=== PATIENT | male | born 1980 | race Caucasian/White ===

== ENCOUNTER 2021-07-09 10:01 | Emergency (ER) | payer OTHER ==
--- OUTSIDE RECORDS SUMMARY | 2021-07-09 10:16 | XMS REPORT | Continuity of Care Document ---
:1980 Author Organization [facility] [place] [facility] t Address [address] [place] [address] [address]. [address] [place] [address] Care Team Providers Name Role Phone Angely PORTER Attending Clinician Unavailable Silvia LALA Attending Clinician Unavailable Room, Therapy Tub Attending Clinician Unavailable Harjinder CODY, Jon Attending Clinician Silvia Lala MD Attending Clinician Angely Porter MD Attending Clinician Jon GRANDE Attending Clinician Unavailable Ministerio Ruiz MD Attending Clinician MINISTERIO RUIZ Attending Clinician Unavailable Doctor Unassigned, Name Attending Clinician Unavailable Problems Condition Condition Condition Status Onset Resolution Last Treating Co mments Source Name Details Category Date Date Treatment Clinician Date Burn Burn Disease Active Univers 11-05 ity of 00:00: [place] 00 [facility] Allergies, Adverse Reactions, Alerts Allergy Allergy Status Severity Reaction(s) Onset Inactive Treating Comm ents Source Name Type Date Date Clinician NO KNOWN Drug Active Univers ALLERGIE Class ity of S [facility] Social History Social Habit Start Date Stop Date Quantity Comments Source Exposure to Not sure [facility] SARS-CoV-2 (event) Medica l Branch Tobacco use and 2020-11-17 2020-11-17 Never used [facility] exposure 00:00:00 00:00:00 [facility] Sex Assigned At [birth year] [facility] 00:00:00 00:00:00 [facility] Smoking Status Start Date Stop Date Source Current every day smoker 2020-[facility]17 [facility] Ordered Filled Start Stop Current Ordering Indication Dosage Frequency Signature Comments Components Source Medication Medication Date Date Medication? Clinician (SIG) Name Name FENTanyl 2020- No [id number] 200ug 200 mcg, Univers (ACTIQ) 11-17 Buccal, ity of lollipop 19:00: 18:01 ONCE, 1 [place] 200 mcg 00 :00 dose, Fri Medical 11/17/20 at Branch 1400, Routine gabapentin 2020-2020- No [id number] 300mg Take 1 Univers 300 mg 11-17 05-08 capsule by ity of capsule 00:00: 04:59 mouth 3 [place] 00 :00 (three) Medical times Branch daily for 14 days. gabapentin 2020-0 2020- No [id number] 300mg Take 1 Univers 300 mg 11-17 05-08 capsule by ity of capsule 00:00: 04:59 mouth 3 [place] 00 :00 (three) Medical times Branch daily for 14 days. ibuprofen Yes [id number] 600mg Take 3 Univers 200 mg 4-11 tablets by ity of tablet 00:00: mouth [place] 00 every 6 Medical (six) Branch hours as needed for Pain (scale 1-3) or Pain (scale 4-6). ibuprofen Yes [id number] 600mg Take 3 Univers 200 mg 4-11 tablets by ity of tablet 00:00: mouth [place] 00 every 6 Medical (six) Branch hours as needed for Pain (scale 1-3) or Pain (scale 4-6). ibuprofen Yes [id number] 600mg Take 3 Univers 200 mg 4-11 tablets by ity of tablet 00:00: mouth [place] 00 every 6 Medical (six) Branch hours as needed for Pain (scale 1-3) or Pain (scale 4-6). ibuprofen Yes [id number] 600mg Take 3 Univers 200 mg 4-11 tablets by ity of tablet 00:00: mouth [place] 00 every 6 Medical (six) Branch hours as needed for Pain (scale 1-3) or Pain (scale 4-6). ibuprofen 0 Yes [id number] 600mg Take 3 Univers 200 mg 4-11 tablets by ity of tablet 00:00: mouth [place] 00 every 6 Medical (six) Branch hours as needed for Pain (scale 1-3) or Pain (scale 4-6). ibuprofen Yes [id number] 600mg Take 3 Univers 200 mg 4-11 tablets by ity of tablet 00:00: mouth [place] 00 every 6 Medical (six) Branch hours as needed for Pain (scale 1-3) or Pain (scale 4-6). ibuprofen Yes [id number] 600mg Take 3 Univers 200 mg 4-11 tablets by ity of tablet 00:00: mouth [place] 00 every 6 Medical (six) Branch hours as needed for Pain (scale 1-3) or Pain (scale 4-6). HYDROcodone 2020- No [id number] 1{tbl} Take 1 U nivers -acetaminop 11-05 tablet by it y of hen 5-325 00:00: 04:59 mouth [place] mg tablet 00 :00 every 6 Medical (six) Branch hours as needed for Pain (scale 7-10) for up to 7 days. Indication s: acute pain sulfamethox 2020- No [id number] 1{tbl} Take 1 Univers azole-trime 11-05 tablet by it y of thoprim 00:00: 04:59 mouth 2 [place] (BACTRIM 00 :00 (two) Medical DS) 800-160 times Branch mg per daily for tablet 7 days. rifAMPin 2020- No [id number] 300mg Take 1 Univers 300 mg 11-05 capsule by ity of capsule 00:00: 04:59 mouth [place] 00 :00 daily for Medical 7 days. Branch Vital Signs Vital Name Observation Time Observation Value Comments Source Systolic blood 2020-11-17 17:58:00 120 mm[Hg] Univer sity [facility] Diastolic blood 2020-11-17 17:58:00 72 mm[Hg] [facility] Heart rate 2020-11-17 17:58:00 87 /min [facility] Body temperature 2020-11-17 17:58:00 36.67 Sol [facility] Body weight 2020-11-17 17:58:00 83.915 kg [facility] BMI 2020-11-17 17:58:00 27.32 kg/m2 [facility] Oxygen saturation in 2020-11-17 17:58:00 98 /min [facility] Arterial blood by [facility] Pulse oximetry Branch Respiratory rate 2020-11-17 17:44:00 20 /min [facility] Systolic blood 2020-11-09 18:08:00 109 mm[Hg] Univer sity of pressure [facility] Diastolic blood 2020-11-09 18:08:00 67 mm[Hg] Unive rsity of pressure [facility] Heart rate 2020-11-09 18:08:00 74 /min [facility] Body temperature 2020-11-09 18:08:00 36.89 Sol [facility] Respiratory rate 2020-11-09 18:08:00 18 /min [facility] Body weight 2020-11-09 18:08:00 83.915 kg [facility] BMI 2020-11-09 18:08:00 27.32 kg/m2 [facility] Oxygen saturation in 2020-11-09 18:08:00 98 /min [facility] Arterial blood by [facility] Pulse oximetry Branch Procedures Procedure Date / Time Performed Performing Clinician Sour e HOSPITAL ADMISSION 2020-11-05 05:01:00 Doctor Unassigned, No Uni versity of [facility] Encounters Start End Encounter Admission Attending Care Care Encounter Source Date/Time Date/Time Type Type Clinicians Facility Department ID 2020-11-30 2020-11-30 Outpatient R [facility] [id number] Univers 12:30:00 12:30:00 [id number] [facility] 2020-11-30 2020-11-30 Outpatient O CHARLOTTE [facility] [id number] Univers 12:30:00 12:30:00 [facility] 2020-11-24 2020-11-24 Outpatient R [facility] [id number] Univers 12:30:00 12:30:00 [id number] [facility] 2020-11-24 2020-11-24 Outpatient O ABIODUN LALA [facility] [id number] Univers 12:30[facility]00 [facility] 2020-11-21 2020-11-21 Ancillary Room, Susi-Occup Therapy Tub [facility] [id number] Univers 09:55:46 10:55:46 Visit [place] [id number] ity of Hospital [id number] Siddhartha as [phone] [facility] 178 Branch 2020-11-17 2020-11-17 Hospital Abiodun Lala [id number] Univers 12:30:00 23:59:00 Encounter Kang Porter [place] [id number] 0 ity of Hospital [id number] Siddhartha as [phone] [facility] 184 Branch 2020-11-17 2020-11-17 Outpatient R HARJINDER [facility] [id number] Univers 15:00:00 15:00:00 NING ity [facility] 2020-11-17 2020-11-17 Outpatient O [facility] [id number] Univers 12:30:00 12:30:00 [id number] ity [facility] 2020-11-17 2020-11-17 Outpatient O ABIODUN LALA [facility] [id number] Univers 12:30:00 12:30:00 ity [facility] 2020-11-16 2020-11-16 Telephone Abiodun Lala [id number] Univers 00:00:00 00:00:00 [place] [id number] it y of Hospital [id number] Siddhartha as [phone] [facility] 184 Branch 2020-11-15 2020-11-15 Telephone Abiodun Lala [id number] Univers 00:00:00 00:00:00 [place] [id number] it y of Hospital [id number] Siddhartha as [phone] [facility] 184 Branch 2020-11-09 2020-11-09 Kristopher Rg 1. [id number] Univers 12:30:00 23:59:00 Encounter Abiodun Lala [id number] ity of [facility] [id number] Siddhartha as [phone] [facility] 184 Branch 2020-11-09 2020-11-09 Ancillary Room, Susi-Occup Therapy Tub [facility] [id number] Univers 14:21:33 15:21:33 Visit [place] [id number] ity of [facility] [id number] Siddhartha as [phone] [facility] 178 Branch 2020-11-09 2020-11-09 Outpatient O ANTONY, [facility] [id number] Univers 12:30:00 12:30:00 KRISTPOHER [facility] 2020-11-09 2020-11-09 Outpatient R [facility] [id number] Univers 11:00:00 11:00:00 [id number] [facility] 2020-11-09 2020-11-09 [facility] [id number] Univers 11:00:00 11:00:00 NING bryson [facility] 2020-11-05 2020-11-05 Orders Doctor JAYESH [id number] Univers 00:00:00 00:00:00 Only Unassigned, JUAN [id number] ity of [place] [facility] [id number] Siddhartha as [phone] [facility] 009 Branch Results This patient has no known results.
--- NOTE | 2021-07-09 12:21 | RAD REPORT ---
EXAM DESCRIPTION: RAD - Foot Right 3 View - 07/09/2021 11:11 am CLINICAL HISTORY: Right foot pain status post injury FINDINGS: Lucency proximal metaphysis fourth metatarsal probably subacute minimally displaced fractu re. Lucencies within the base of the second metatarsal equivocal for additional nondisplaced subacute fracture. No dislocation
--- NOTE | 2021-07-09 12:32 | EDPHYS ---
Physician Documentation [facility] Name: Immanuel Mota Age: 41 yrs Sex: Male : 1980 Arrival Date: 07/09/2021 Time: 10:05 Bed Treatment Private MD: JENSEN Physician Javon Lopez HPI: 07/09 12:24 This 41 yrs old Male presents to ER via Ambulatory with complaints of Foot Injury. pm1 12:24 The patient presents with pain. The complaints affect the right foot. Context: The pm1 problem was sustained at work, resulted from turned his foot while holding 80 pounds, the patient is able to ambulate, with walking boot placed two weeks ago. Onset: The symptoms/episode began/occurred 2 week(s) ago. Modifying factors: the symptoms are aggravated by weight bearing. Associated signs and symptoms: Pertinent positives: swelling, of the arch of right foot and dorsum of right foot, Pertinent negatives calf tenderness. Treatment prior to arrival includes: X-ray and walking boot two weeks ago at [facility]. Was given a follow up appointment with [facility] podiatry and CT foot order in July. Patient felt that he could not wait until then and came to the ER for a CT. Patient was prescribed Flexeril and ibuprofen. Recently ran out of Flexeril and reports decreased pain relief without Flexeril. The patient has not experienced similar symptoms in the past. Historical: - Allergies: 10:52 No Known Allergies; ss - Immunization history:: Client reports having NOT received the Covid vaccine. - Social history:: Smoking status: Patient reports the use of cigarette tobacco products, smokes one-half pack cigarettes per day. ROS: 12:24 Constitutional: Negative for fever, chills, and weight loss, Cardiovascular: Negative pm1 for chest pain, palpitations, and edema, Respiratory: Negative for shortness of breath, cough, wheezing, and pleuritic chest pain. 12:24 Skin: Negative for injury, rash, and discoloration, Neuro: Negative for headache, weakness, numbness, tingling, and seizure. 12:24 MS/extremity: Positive for pain, swelling, of the dorsum of right foot and arch of right foot, Negative for deformity. 12:24 All other systems are negative. Exam: 12:24 Constitutional: This is a well developed, well nourished patient who is awake, alert, pm1 and in no acute distress. Head/Face: Normocephalic, atraumatic. 12:24 Skin: Warm, dry with normal turgor. Normal color with no rashes, no lesions, and no evidence of cellulitis. 12:24 Cardiovascular: Exam negative for acute changes, Rate: normal, Rhythm: regular, Pulses: no pulse deficits are appreciated. 12:24 Respiratory: Exam negative for acute changes, respiratory distress, shortness of breath, Breath sounds: are clear throughout. 12:24 Musculoskeletal/extremity: Extremities: grossly normal except: noted in the dorsum of right foot and arch of right foot: swelling, There is no evidence of deformity, brisk cap refill right foot. the right foot Sensation intact. 12:24 Neuro: Exam negative for acute changes, Orientation: is normal, Mentation: is normal, Motor: is normal, moves all fours. Vital Signs: 10:48 Pulse 105; Resp 18; Temp 98.7(TE); Pulse Ox 100% on R/A; Weight 83.91 kg; Height 5 ft. ss 9 in. (175.26 cm); 10:54 BP 142 / 99; ss 10:48 Body Mass Index 27.32 (83.91 kg, 175.26 cm) ss MDM: 12:09 Patient medically screened. pm1 12:24 Data reviewed: vital signs. Data interpreted: Pulse oximetry: on room air is 100 %. pm1 Interpretation: normal. Counseling: I had a detailed discussion with the patient and/or guardian regarding: the historical points, exam findings, and any diagnostic results supporting the discharge/admit diagnosis, radiology results, the need for outpatient follow up, to return to the emergency department if symptoms worsen or persist or if there are any questions or concerns that arise at home. 07/09 10:56 Order name: Foot Right 3 View XRAY; Complete Time: 12:24 pm1 Administered Medications: No medications were administered Disposition: 15:28 Co-signature as Attending Physician, Javon Lopez MD I agree with the assessment and rn plan of care. Attestation: The patient's history, exam findings, diagnostics, and a summary of any interventions or procedures was reviewed in detail with Robert Aviles NP. Disposition Summary: 07/09/21 12:31 Discharge Ordered Location: Home pm1 Problem: new pm1 Symptoms: have improved pm1 Condition: Stable pm1 Diagnosis - Right proximal metaphysis fourth metatarsal subacute minimally displaced fracture pm1 - Right base of second metatarsal nondisplaced subacture fracture pm1 Followup: pm1 - With: Emergency Department - When: As needed - Reason: Worsening of condition Followup: pm1 - With: Private Physician - When: 2 - 3 days - Reason: Recheck today's complaints, Continuance of care, Re-evaluation by your physician Followup: pm1 - With: Eleuterio Espinosa DPM - When: 2 - 3 days - Reason: Recheck today's complaints, Continuance of care, Re-evaluation by your physician Discharge Instructions: - Discharge Summary Sheet pm1 - Metatarsal Fracture pm1 Forms: - Medication Reconciliation Form pm1 - Thank You Letter pm1 - Antibiotic Education pm1 - Prescription Opioid Use pm1 Signatures: Dispatcher [employer] EDJavon Arevalo MD MD rn Smirch, Shelby, RN RN ss Marinas, Patrick, ALESSIO PULMONARY NURSE PRACTITIONER pm1
--- NOTE | 2021-07-09 12:32 | ER ---
Nurse's Notes [facility] Name: Immanuel Mota Age: 41 yrs Sex: Male : 1980 Arrival Date: 07/09/2021 Time: 10:05 Bed Treatment Private MD: Diagnosis: Right proximal metaphysis fourth metatarsal subacute minimally displaced fracture;Right base of second metatarsal nondisplaced subacture fracture Presentation: 07/09 10:48 Chief complaint: Patient states: foot injury that occurred 2 weeks ago after stepping ss off of trailer. Pt was seen at [facility] and told that his R foot was a few fractures. Walking boot placed. Pt states that he has a CT scheduled for next month, but wants the CT sooner. Coronavirus screen: Client denies travel out of the [place] in the last 14 days. Ebola Screen: Patient denies exposure to infectious person. Patient denies travel to an Ebola-affected area in the 21 days before illness onset. Initial Sepsis Screen: Does the patient meet any 2 criteria? No. Patient's initial sepsis screen is negative. Does the patient have a suspected source of infection? No. Patient's initial sepsis screen is negative. Risk Assessment: Do you want to hurt yourself or someone else? Patient reports no desire to harm self or others. Onset of symptoms was June 25, 2021. 10:48 Method Of Arrival: Ambulatory ss 10:48 Acuity: KOURTNEY 5 ss Historical: - Allergies: 10:52 No Known Allergies; ss - Immunization history:: Client reports having NOT received the Covid vaccine. - Social history:: Smoking status: Patient reports the use of cigarette tobacco products, smokes one-half pack cigarettes per day. Screenin:55 Abuse screen: Denies threats or abuse. Denies injuries from another. Nutritional ss screening: No deficits noted. Tuberculosis screening: Never had TB. Fall Risk None identified. Assessment: 12:07 General: Appears in no apparent distress. comfortable, Behavior is calm, cooperative, ss Denies fever, feeling ill, fatigue, chills. Pain: Complains of pain in dorsum of right foot and arch of right foot Pain currently is 5 out of 10 on a pain scale. Quality of pain is described as aching, tender. Neuro: Level of Consciousness is awake, alert, obeys commands, Oriented to person, place, time, situation. Respiratory: Airway is patent Respiratory effort is even, unlabored, Respiratory pattern is regular, symmetrical. Derm: Skin is pink, warm \T\ dry. normal. Musculoskeletal: Range of motion: intact in all extremities. 12:55 Reassessment: Patient appears in no apparent distress at this time. Patient and/or ss family updated on plan of care and expected duration. Pain level reassessed. Patient is alert, oriented x 3, equal unlabored respirations, skin warm/dry/pink. Vital Signs: 10:48 Pulse 105; Resp 18; Temp 98.7(TE); Pulse Ox 100% on R/A; Weight 83.91 kg; Height 5 ft. ss 9 in. (175.26 cm); 10:54 BP 142 / 99; ss 10:48 Body Mass Index 27.32 (83.91 kg, 175.26 cm) ED Course: 10:05 Patient arrived in ED. mr 10:51 Triage completed. ss 10:52 Arm band placed on left wrist. 10:55 Robert Aviles NP is PHCP. pm1 10:56 Javon Lopez MD is Attending Physician. pm1 11:11 Foot Right 3 View XRAY In Process Unspecified. EDAL 12:23 Juliana Lowery RN is Primary Nurse. 12:31 Eleuterio Espinosa DPM is Referral Physician. pm1 12:55 Patient has correct armband on for positive identification. ss 12:55 No provider procedures requiring assistance completed. Patient did not have IV access ss during this emergency room visit. Administered Medications: No medications were administered Outcome: 12:31 Discharge ordered by . pm1 12:55 Discharged to home ambulatory. ss 12:55 Condition: good 12:55 Discharge instructions given to patient, Instructed on discharge instructions, follow up and referral plans. Demonstrated understanding of instructions, follow-up care. 12:55 Patient left the ED. Signatures: Dispatcher [employer] JENSENAL Abimael Heidy mr Juliana Lowery, MARYJANE RN ss Robert Aviles NP ENVIRONMENTAL SCIENCE INSTRUCTOR pm1
[2021-07-09 13:03] VITALS: TEMP 98.7; O2SAT 100
[2021-07-09 13:04] VITALS: BP 142/99
== END 2021-07-09 12:55 | disposition home or self-care (01) ==
LOC: ER 10:01
DX: S92.341A Displaced fracture of fourth metatarsal bone, right foot, initial encounter for closed fracture (principal); S92.321A Displaced fracture of second metatarsal bone, right foot, initial encounter for closed fracture; X58.XXXA Exposure to other specified factors, initial encounter; Y93.01 Activity, walking, marching and hiking; Y92.89 Other specified places as the place of occurrence of the external cause; Y99.8 Other external cause status; F17.210 Nicotine dependence, cigarettes, uncomplicated
CPT/HCPCS: 99283